=== PATIENT | female | born 2000 | race Hispanic/Latino ===

== ENCOUNTER 2024-04-11 20:25 | Emergency (ER) | payer BC, OTHER, SELFPAY ==
[2024-04-11 20:27] VITALS: BP 136/73
[2024-04-11] MEDS: TORADOL 30 MG IM (21:42)
--- NOTE | 2024-04-11 22:13 | ED.GENMED ---
History of Present Illness
General
Chief Complaint: Musculo-Skeletal Complaint
Time Seen by Provider: 04/11/24 21:53
Travel History
Have you had any contact with someone who has COVID-19?: No
Do you have any symptoms of coronavirus? Fever > 100 degrees, chills, cough, shortness of breath, sore throat, loss of taste or smell, muscle aches, or headache?: No
History of Present Illness
History of Present Illness:
24-year-old female presents the emergency department for evaluation of chronic right foot pain and numbness that has been ongoing for the past 3 months. Initially the foot was painful primarily in the heel, she was treated with a corticosteroid
injection by [facility] [employer] with the symptoms worsened. She now reports the entire right foot has a burning discomfort. She has tried a course of prednisone as well as gabapentin without relief. She is scheduled for an MRI in 2 weeks. She is able to
ambulate but has severe pain. She has been wearing an orthotic boot without any improvement. She has not a walker or have the fit test dizziness. Denies any back pain. Denies any leg swelling or pallor
Past History
Past History
ED Past Medical History: Asthma and Seizures
ED Past Surgical History: Other ([place] teeth removal)
Social History
Tobacco: Non-smoker
Alcohol: None
Drug: None
Personal: Single
Living: with family
Employment: Employed
Review of Systems
Review of Systems
Allergies reviewed?: Yes
All Other Systems: ROS reviewed and negative except as documented in HPI and ROS
Phy Exam
Physical Exam
Physical Exam:
GEN: Well appearing, NAD, WDWN
HEENT: Oral mucosa moist, no scleral icterus
Cardiac: Regular rate
Lung: No respiratory distress, no tachypnea
MSK: No gross deformity or injuries. The right foot appears atraumatic with no swelling. Dorsalis pedis and posterior tibialis pulses are strong. Range of motion is normal in all nunes and strength is normal. There is no sensory level deficit.
No tenderness or increased numbness elicited with palpation of the right fibular head
Skin: Good color, no pallor or jaundice, no rashes
Neuro: AO x3, moves all extremities freely
Psych: Calm, cooperative
Course
Orders/Labs/Results
Orders:
Orders
04/11/24 20:32
Foot, Right 3 View [CR Foot - Right Min 3 Views] Urgent
Comment: right heel pain
Reason For Exam: pain and numbness
04/11/24 21:41
Ketorolac [Toradol] 30 mg .ROUTE .STK-MED ONE
04/11/24 21:42
Ketorolac [Toradol] 30 mg IM NOW STA
Vital Signs
Initial and Last Documented VS:
Initial Vital Signs
Temp Pulse Resp BP Pulse Ox
98.2 F 84 18 136/73 100
04/11/24 20:27 04/11/24 20:27 04/11/24 20:27 04/11/24 20:27 04/11/24 20:27
Last Documented Vital Signs
Temp Pulse Resp BP Pulse Ox
98.2 F 86 20 136/73 99
04/11/24 20:27 04/11/24 22:26 04/11/24 22:26 04/11/24 20:27 04/11/24 22:26
MDM/Problems Addressed
MDM/Problems Addressed:
Unclear etiology. Doubt that this is a radiculopathy given that his focal symptoms to the foot and has not progressed. The right foot has no objective strength deficit concerning for spinal cord lesion. Certainly could be a peroneal nerve
entrapment however she is not a runner and has no elicited symptoms at the fibular head. Ultimately she should continue with outpatient management plan
*Critical Care Note
Total Time (30-74mins, 75-104mins- exclusive of procedures): Not Applicable
ED Attending Note
-
Portions of this chart may have been created with voice recognition software.� Occasional wrong word or��sound alike� substitutions may have occurred due to the inherent limitations of voice recognition software.
Discharge Plan
Departure
Patient Disposition: Home (Routine Discharge)
Date of Disposition: 04/11/24
Time of Disposition: 22:13
Patient with high blood pressure during this ER visit?: No
Discharge Problem:
Chronic pain in right foot
Instructions: Exercise Band Exercises for the Knee and Ankle
Prescriptions:
New
pregabalin [Lyrica] 50 mg capsule
50 mg PO TID Qty: 45 0RF
No Action
promethazine 25 MG tablet
25 mg PO Q6HPRN PRN (Reason: nausea or headache) Qty: 12 0RF
Referrals:
Lauren Benavides, [Family Provider] -
Activity Restrictions/Additional Instructions:
Please contact your [facility] [employer] to discuss any potential benefit of a nerve conduction study or EMG. There is possibility of nerve entrapment however this can be further evaluated with outpatient imaging.
If you develop weakness of the foot or leg, or discoloration of the foot, return to the ER for further evaluation
Interventions
Interventions:
*Risk Screen - Suicide Last Done: 04/11/24 22:26
*General Assessment Last Done: 04/11/24 22:26
*Neglect/Abuse Screening Last Done: 04/11/24 22:26
ED- Fall Risk Assessment Last Done: 04/11/24 21:20
*ED COVID-19 Vaccine History Last Done: 04/11/24 22:26
*Nursing Disposition Last Done: 04/11/24 22:26
ED-Musculoskeletal Assessment Last Done: 04/11/24 21:20
Discharge Date and Time
Discharge Date/Time: 04/11/24 22:29
Print Language: UPPER SORBIAN
== END 2024-04-11 22:29 | disposition home or self-care (01) ==
LOC: EMR 20:25
PROVIDERS: EMERGENCY PHYSICIAN Emergency Medicine; FAMILY PHYSICIAN Family Medicine
DX: M79.671 Pain in right foot (principal); R20.0 Anesthesia of skin; R20.8 Other disturbances of skin sensation; G89.29 Other chronic pain; J45.909 Unspecified asthma, uncomplicated; R56.9 Unspecified convulsions; Z88.1 Allergy status to other antibiotic agents
CPT/HCPCS: 99284; 96372; 73630